=== PATIENT | female | born 1980 | race Native Hawaiian/Other Pacific Islander ===

== ENCOUNTER 2017-07-23 20:15 | Emergency (ER) | payer OTHER ==
[~2017-07-23] VITALS: Ht 165.1 cm; Wt 99.8 kg
[2017-07-23 21:04] LABS: PLATELET COUNT 282 K/uL (152-353)
[2017-07-23 21:14] LABS: POTASSIUM 3.5 mmol/L (3.6-5.2)
[2017-07-23 22:12] VITALS: BP 150/90; TEMP 98.5
== END 2017-07-23 22:34 | disposition home or self-care (01) ==
LOC: ED 20:15
DX: O16.1 Unspecified maternal hypertension, first trimester (principal); Z3A.01 Less than 8 weeks gestation of pregnancy; O14.92 Unspecified pre-eclampsia, second trimester
CPT/HCPCS: 36415; 80053; 81000; 84702; 85027; 96374; 99284; J0360; J2405

== ENCOUNTER 2018-11-18 15:21 | Emergency (ER) | payer OTHER ==
[~2018-11-18] VITALS: Ht 165.1 cm; Wt 104.3 kg
[2018-11-18 15:37] VITALS: TEMP 98.4
[2018-11-18 18:18] VITALS: BP 148/98
== END 2018-11-18 18:19 | disposition home or self-care (01) ==
LOC: ED 15:21
DX: J02.9 Acute pharyngitis, unspecified (principal); S93.401A Sprain of unspecified ligament of right ankle, initial encounter; R05 Cough
CPT/HCPCS: 87502; 87651; 99283

== ENCOUNTER 2019-06-12 13:01 | Emergency (ER) | payer OTHER ==
[~2019-06-12] VITALS: Ht 167.6 cm; Wt 104.3 kg
[2019-06-12 13:19] VITALS: BP 154/104; TEMP 98.2
== END 2019-06-12 14:22 | disposition home or self-care (01) ==
LOC: ED 13:01
DX: S93.492A Sprain of other ligament of left ankle, initial encounter (principal); S83.8X2A Sprain of other specified parts of left knee, initial encounter; X50.1XXA Overexertion from prolonged static or awkward postures, initial encounter; Y92.89 Other specified places as the place of occurrence of the external cause
CPT/HCPCS: 99283

== ENCOUNTER 2019-07-09 23:27 | Emergency (ER) | payer OTHER ==
[~2019-07-09] VITALS: Ht 167.6 cm; Wt 104.3 kg
[2019-07-09 23:52] VITALS: BP 149/94; TEMP 97.3
== END 2019-07-09 23:52 | disposition home or self-care (01) ==
LOC: ED 23:27
PROC: 09C4XZZ Extirpation of Matter from Left External Auditory Canal, External Approach (ICD-10-PCS; principal; 2019-07-09)
DX: T16.2XXA Foreign body in left ear, initial encounter (principal)
CPT/HCPCS: 99283; J7040

== ENCOUNTER 2020-08-28 13:22 | Emergency (ER) | payer OTHER ==
[~2020-08-28] VITALS: Ht 167.6 cm; Wt 104.3 kg
[2020-08-28 15:35] VITALS: BP 131/82; TEMP 97.6
== END 2020-08-28 15:35 | disposition home or self-care (01) ==
LOC: ED 13:22
DX: S86.812A Strain of other muscle(s) and tendon(s) at lower leg level, left leg, initial encounter (principal); S96.812A Strain of other specified muscles and tendons at ankle and foot level, left foot, initial encounter; W10.8XXA Fall (on) (from) other stairs and steps, initial encounter; Y92.89 Other specified places as the place of occurrence of the external cause
CPT/HCPCS: 96372; 99283; J1885

== ENCOUNTER 2020-11-15 15:04 | Emergency (ER) | payer OTHER ==
[~2020-11-15] VITALS: Ht 167.6 cm; Wt 98.9 kg
[2020-11-15 15:08] VITALS: BP 135/87; TEMP 97.6
== END 2020-11-15 15:46 | disposition home or self-care (01) ==
LOC: ED 15:04
PROC: 2W3CX1Z Immobilization of Right Lower Arm using Splint (ICD-10-PCS; principal; 2020-11-15)
DX: S63.591A Other specified sprain of right wrist, initial encounter (principal); W20.8XXA Other cause of strike by thrown, projected or falling object, initial encounter; Y92.096 Garden or yard of other non-institutional residence as the place of occurrence of the external cause
CPT/HCPCS: 96372; 99283; J1885

== ENCOUNTER 2021-07-20 12:44 | Emergency (ER) | payer OTHER ==
[~2021-07-20] VITALS: Ht 170.2 cm; Wt 106.6 kg
[2021-07-20 13:59] LABS: PLATELET COUNT 284 K/uL (152-353)
[2021-07-20 14:34] LABS: POTASSIUM 4.2 mmol/L (3.6-5.2)
[2021-07-20 16:15] VITALS: BP 116/74; TEMP 98
== END 2021-07-20 16:15 | disposition home or self-care (01) ==
LOC: ED 12:44
PROVIDERS: Emergency Medicine
DX: I16.0 Hypertensive urgency (principal)
CPT/HCPCS: 80053; 81000; 84484; 85027; 93005; 99283

== ENCOUNTER 2022-02-12 07:31 | Emergency (ER) | payer OTHER ==
[~2022-02-12] VITALS: Ht 170.2 cm; Wt 103.0 kg
[2022-02-12 07:31] VITALS: TEMP 98
[2022-02-12 08:37] LABS: PLATELET COUNT 252 K/uL (152-353)
[2022-02-12 08:42] LABS: POTASSIUM 4.2 mmol/L (3.6-5.2)
[2022-02-12 14:30] VITALS: BP 148/72
== END 2022-02-12 14:43 | disposition still patient (30) ==
LOC: ED 07:31
PROVIDERS: Emergency Medicine
DX: R10.13 Epigastric pain (principal)
CPT/HCPCS: 36415; 80053; 81002; 82150; 83690; 85027; 96360; 96374; 96375; 96376; 99284; J2270; J2405; J3490